=== PATIENT | female | born 1955 | race Asian ===

== ENCOUNTER 2024-11-18 12:16 | Emergency (ER) | payer BC, MEDICAID, SELFPAY ==
[2024-11-18] VITALS (24 sets, daily range): BP systolic 108–134; BP diastolic 74–90; PULSE 52–70; RESP 12–20; TEMP 36.6–36.9; O2SAT 90–100
--- NOTE | ~2024-11-18 | CT_ITS ---
CT head without contrast Indication: Dizziness, headache Technique: Serial scans were obtained through the brain without the administration of contrast. Dose reduction technique was used on this scan by utilizing automated exposure control and iterative recon struction technique. The dose-length product (DLP) was 605.33 mGy-cm. Findings: There is no evidence of intracranial hemorrhage, mass lesion, or acute infarct. The ventri cles and subarachnoid spaces are dilated, consistent with mild atrophy. Low attenuation regions are seen within the periventricular white matter bilaterally, likely representing changes from chronic mi crovascular ischemic disease. There is no evidence of edema, mass effect or midline shift. The visu alized paranasal sinuses and mastoid air cells are clear. Impression: No intracranial hemorrhage, mass, or acute infarct. Atrophy and chronic white matter changes, as above. Reviewed, dictated and finalized at location . Impression: No intracranial hemorrhage, mass, or acute infarct. Atrophy and chronic white matter changes, as above.
--- NOTE | 2024-11-18 13:29 | ED.DIZZY ---
HPI - Dizziness General Chief Complaint: Dizziness <Iesha Jay PA-C - Last Filed: 11/19/24 09:27> Stated Complaint: dizziness, nausea <Iesha Jay PA-C - Last Filed: 11/19/24 09:27> Time Seen by Provider: 11/18/24 13:29 <Iesha Jay PA-C - Last Filed: 11/19/24 09:27> Focused HPI: This is a 69 year old female that presents to the ER for headache. Reports associated dizziness. She woke up with these symptoms. No recent falls or injuries. Reports she had to hold the wall so she wouldn't fall. GENERAL: Well-appearing, well-nourished, and in no acute distress. HEAD: Normocephalic, atraumatic. CHEST: Clear to auscultation. ?No respiratory distress. HEART: Regular rate and rhythm.? NEURO: ?Alert and oriented x3. Patient screened in triage and initial orders placed.? ?Additional care and disposition to be based upon?diagnostic testing and treatment. <Iesha Jay PA-C - Last Filed: 11/19/24 09:27> History of Present Illness HPI Narrative: Agree with the HPI. <Chance Alarcon MD - Last Filed: 11/18/24 21:47> Related Data Allergies/Adverse Reactions: Allergies Allergy/AdvReac Type Severity Reaction Status Date / Time No Known Allergies Allergy Verified 11/18/24 12:36 <Iesha Jay PA-C - Last Filed: 11/19/24 09:27> Review of Systems Review of Systems: Gen.: Denies fevers or chills Eyes: Denies eye pain or visual change ENT: Denies congestion Respiratory: Denies shortness of breath or cough CV: Denies chest pain or palpitations GI: Denies abdominal pain nausea, emesis or diarrhea denies burning, urgency, frequency or hematuria Musculoskeletal: Denies back pain or muscle pain Neuro: Headache, dizziness. Denies numbness, tingling, weakness or focal weakness Skin: Denies rash Except as documented, all other systems reviewed and negative <Chance Alarcon MD - Last Filed: 11/18/24 21:47> Exam Narrative: APPEARANCE: No acute distress, nontoxic, resting in bed EYES: EOMI HEENT: Normocephalic, atraumatic, OMM RESPIRATORY: No respiratory distress Clear to auscultation bilaterally with no rhonchi wheezing or rales. CARDIOVASCULAR: Regular rate and rhythm without murmurs rubs or gallops. ABDOMINAL: Soft, nontender, nondistended, no rebound or guarding MUSCULOSKELETAl: Moves all extremities. No clubbing, cyanosis or edema. NEURO: Awake and alert. Following commands, speech normal, no focal deficits. NIH SS 0. SKIN:: Warm, dry. No rashes lesions or abrasions PSYCHIATRIC: Normal affect/mood, <Chance Alarcon MD - Last Filed: 11/18/24 21:47> Course Vital Signs Vital signs: Vital Signs Temperature 98.5 F 11/18/24 12:34 Pulse Rate 60 11/18/24 12:34 Respiratory Rate 15 11/18/24 12:34 Blood Pressure 132/82 11/18/24 12:34 Pulse Oximetry 98 11/18/24 12:34 Oxygen Delivery Room Air 11/18/24 12:34 Temperature 97.9 F 11/18/24 15:21 Pulse Rate 59 L 11/18/24 18:01 Respiratory Rate 12 11/18/24 18:00 Blood Pressure 116/90 11/18/24 18:01 Pulse Oximetry 96 11/18/24 18:01 Oxygen Delivery Room Air 11/18/24 12:34 <Iesha Jay PA-C - Last Filed: 11/19/24 09:27> Vital Signs Temperature 98.5 F 11/18/24 12:34 Pulse Rate 60 11/18/24 12:34 Respiratory Rate 15 11/18/24 12:34 Blood Pressure 132/82 11/18/24 12:34 Pulse Oximetry 98 11/18/24 12:34 Oxygen Delivery Room Air 11/18/24 12:34 Temperature 97.9 F 11/18/24 15:21 Pulse Rate 59 L 11/18/24 18:01 Respiratory Rate 12 11/18/24 18:00 Blood Pressure 116/90 11/18/24 18:01 Pulse Oximetry 96 11/18/24 18:01 Oxygen Delivery Room Air 11/18/24 12:34 <Chance Alarcon MD - Last Filed: 11/18/24 21:47> MDM - Dizziness MDM Narrative Medical decision making narrative: 69-year-old female presenting to the ED for headache, dizziness. Initial vital stable. She had a nonfocal neuro exam. CT head showed no acute process. She was given meclizine and zofran with improvement of her nausea and dizziness. She was given toradol with improvement of her headache. Patient did report some urinary frequency. UA was obtained and did show evidence of UTI. She was given a prescription for Keflex. Patient is new to the area, so she was given a referral to primary care here in the area to self-care. Patient and were agreeable to plan. Given strict return precautions. <Chance Alarcon MD - Last Filed: 11/18/24 21:47> Differential Diagnosis Differential diagnosis: Likely benign paroxysmal positional vertigo, cerebrovascular accident, acute vestibular neuronitis, transient cerebral ischemia and other (UTI, electrolyte abnormality) <Chance Alarcon MD - Last Filed: 11/18/24 21:47> Lab Data Attestation: I reviewed the patient's lab results. <Chance Alarcon MD - Last Filed: 11/18/24 21:47> Result diagrams: 11/18/24 14:06 11/18/24 14:06 <Iesha Jay PA-C - Last Filed: 11/19/24 09:27> Labs: Lab Results 11/18/24 11/18/24 Range/Units 14:06 17:23 WBC 4.9 (4.5-10.0) K/mm3 RBC 4.40 (4.2-5.4) M/mm3 Hgb 13.7 (12.0-15.0) g/dL Hct 41.6 (37.0-47.0) % MCV 94.5 (80-100) fl MCH 31.1 (26-34) pg MCHC 32.9 (32-36) g/dl RDW 12.9 (11.5-14.5) % Plt Count 365 (150-375) k/mm3 MPV 8.5 (7.4-10.4) fl Immature Gran % (Auto) 0.2 (0-0.5) % Neut % (Auto) 50.9 (45.5-73.1) % Lymph % (Auto) 39.9 (18.3-44.2) % [facility] % (Auto) 6.8 (2.6-8.5) % Eos % (Auto) 1.4 (0-4.4) % Baso % (Auto) 0.8 (0.2-1.2) % Lymph # (Auto) 1.94 (0.9-3.2) K/mm3 [facility] # (Auto) 0.3 (0.1-0.6) K/mm3 Eos # (Auto) 0.1 (0-0.3) K/mm3 Baso # (Auto) 0.0 (0.0-0.1) K/mm3 Abs Immat Gran (auto) 0.01 (0.00-0.031) K/mm3 Absolute Neuts (auto) 2.5 (1.3-6.7) K/mm3 Absolute Nucleated RBC 0.000 (0.0-0.012) K/mm3 Nucleated RBC % 0.0 (0.0-0.2) % Sodium 140 (137-145) mmol/L Potassium 4.2 (3.4-5.0) mmol/L Chloride 106 (98-107) mmol/L Carbon Dioxide 27 (22-30) mmol/L Anion Gap 7 (4-12) mmol/L BUN 15 (7-17) mg/dL Creatinine 0.69 L (0.7-1.0) mg/dL Estim Creat Clear Calc 56 ml/min Estimated GFR > 60 (59 - ) Glucose 89 (65-110) mg/dL Calcium 9.8 (8.4-10.2) mg/dL Total Bilirubin 0.3 (0.2-1.3) mg/dL AST 41 H (14-36) U/L ALT 31 (6-35) U/L Alkaline Phosphatase 86 (38-126) U/L Total Protein 7.8 (6.3-8.2) g/dL Albumin 4.6 (3.5-5.1) g/dL Urine Color Yellow (Yellow) Urine Appearance Cloudy H (Clear) Urine pH 7.5 (5.0-9.0) Ur Specific [place] 1.009 (1.001-1.035) Urine Protein Negative (Negative) mg/dL Urine Glucose (UA) Negative (Negative) mg/dL Urine Ketones Trace H (Negative) mg/dL Ur Blood (Man) Negative (Negative) Urine Nitrate Negative (Negative) Urine Bilirubin Negative (Negative) Urine Urobilinogen 0.2 (<2.0) mg/dL Leukocyte Esterase Rfl 1+ H (Negative) MELODY/UL Urine RBC 0-2 (0-2) /hpf Urine WBC 0-5 (0-3) /hpf Ur Squamous Epith Cells None seen (Few) /hpf Urine Bacteria None seen /hpf Urine Casts 0-2 Hyaline Casts Present (None) /lpf <Iesha Jay PA-C - Last Filed: 11/19/24 09:27> Lab Results 11/18/24 11/18/24 Range/Units 14:06 17:23 WBC 4.9 (4.5-10.0) K/mm3 RBC 4.40 (4.2-5.4) M/mm3 Hgb 13.7 (12.0-15.0) g/dL Hct 41.6 (37.0-47.0) % MCV 94.5 (80-100) fl MCH 31.1 (26-34) pg MCHC 32.9 (32-36) g/dl RDW 12.9 (11.5-14.5) % Plt Count 365 (150-375) k/mm3 MPV 8.5 (7.4-10.4) fl Immature Gran % (Auto) 0.2 (0-0.5) % Neut % (Auto) 50.9 (45.5-73.1) % Lymph % (Auto) 39.9 (18.3-44.2) % [facility] % (Auto) 6.8 (2.6-8.5) % Eos % (Auto) 1.4 (0-4.4) % Baso % (Auto) 0.8 (0.2-1.2) % Lymph # (Auto) 1.94 (0.9-3.2) K/mm3 [facility] # (Auto) 0.3 (0.1-0.6) K/mm3 Eos # (Auto) 0.1 (0-0.3) K/mm3 Baso # (Auto) 0.0 (0.0-0.1) K/mm3 Abs Immat Gran (auto) 0.01 (0.00-0.031) K/mm3 Absolute Neuts (auto) 2.5 (1.3-6.7) K/mm3 Absolute Nucleated RBC 0.000 (0.0-0.012) K/mm3 Nucleated RBC % 0.0 (0.0-0.2) % Sodium 140 (137-145) mmol/L Potassium 4.2 (3.4-5.0) mmol/L Chloride 106 (98-107) mmol/L Carbon Dioxide 27 (22-30) mmol/L Anion Gap 7 (4-12) mmol/L BUN 15 (7-17) mg/dL Creatinine 0.69 L (0.7-1.0) mg/dL Estim Creat Clear Calc 56 ml/min Estimated GFR > 60 (59 - ) Glucose 89 (65-110) mg/dL Calcium 9.8 (8.4-10.2) mg/dL Total Bilirubin 0.3 (0.2-1.3) mg/dL AST 41 H (14-36) U/L ALT 31 (6-35) U/L Alkaline Phosphatase 86 (38-126) U/L Total Protein 7.8 (6.3-8.2) g/dL Albumin 4.6 (3.5-5.1) g/dL Urine Color Yellow (Yellow) Urine Appearance Cloudy H (Clear) Urine pH 7.5 (5.0-9.0) Ur Specific [place] 1.009 (1.001-1.035) Urine Protein Negative (Negative) mg/dL Urine Glucose (UA) Negative (Negative) mg/dL Urine Ketones Trace H (Negative) mg/dL Ur Blood (Man) Negative (Negative) Urine Nitrate Negative (Negative) Urine Bilirubin Negative (Negative) Urine Urobilinogen 0.2 (<2.0) mg/dL Leukocyte Esterase Rfl 1+ H (Negative) MELODY/UL Urine RBC 0-2 (0-2) /hpf Urine WBC 0-5 (0-3) /hpf Ur Squamous Epith Cells None seen (Few) /hpf Urine Bacteria None seen /hpf Urine Casts 0-2 Hyaline Casts Present (None) /lpf <Chance Alarcon MD - Last Filed: 11/18/24 21:47> Imaging Data Radiologist's impression: Impressions Head CT 11/18/24 13:46 Impression: No intracranial hemorrhage, mass, or acute infarct. Atrophy and chronic white matter changes, as above. <Chance Alarcon MD - Last Filed: 11/18/24 21:47> Critical Care Time Critical Care Time Critical Care Time: No <Iesha Jay PA-C - Last Filed: 11/19/24 09:27> Discharge Plan Discharge Clinical Impression: Acute UTI Acute tension headache Qualifiers: Intractability: not intractable Qualified Code(s): G44.209 - Tension-type headache, unspecified, not intractable <Iesha Jay PA-C - Last Filed: 11/19/24 09:27> Patient Disposition: Home <DIANA Mike Last Filed: 11/19/24 09:27> Condition: Improved <Iesha Jay PA-C - Last Filed: 11/19/24 09:27> Instructions: Antibiotic Form, Urinary Tract Infection in Women (ED), Acute Headache (DC) <DIANA Mike Last Filed: 11/19/24 09:27> Patient Language: Wolof <Iesha Jay PA-C - Last Filed: 11/19/24 09:27> Prescriptions: New cephalexin 500 mg capsule 500 mg PO Q12H 7 Days Qty: 14 0RF ondansetron 4 mg tablet,disintegrating 4 mg PO Q8H PRN (Reason: nausea and vomiting) Qty: 14 0RF <Iesha Jay PA-C - Last Filed: 11/19/24 09:27> Follow-up/Referrals: Latrell Bailey DO [Physician, Family Practice] PHYSICIAN,MANAGER CAREER [Non-Staff, Internal Medicine] <DIANA Mike Last Filed: 11/19/24 09:27>
--- NOTE | 2024-11-18 13:30 | ECG_ITS ---
Test Date: 2024-11-18 14:13:02 Measurements Intervals [place] Rate: 55 P: 51 [place]: 192 QRS: -7 QRSD: 89 T: 40 QT: 432 QTc: 416 Interpretive Statements SINUS BRADYCARDIA BORDERLINE ECG No previous ECG available for comparison Electronically Signed On 11-18-2024 14:14:34 CDT by Vitor Rosa D.O.
[2024-11-18] MEDS: ONDANSETRON INJ 4 MG/2 ML VIAL IV PUSH (14:16)
[2024-11-18] MEDS: MECLIZINE HCL 25 MG TABLET PO (14:16)
[2024-11-18 14:17] LABS: Hematocrit 41.6 % (37.0-47.0); Hemoglobin 13.7 g/dL (12.0-15.0); Immature Granulocyte Percent A 0.2 % (0-0.5); Lymphocytes Absolute Auto 1.94 K/mm3 (0.9-3.2); Mean Corpuscular HGB Conc 32.9 g/dl (32-36); Mean Corpuscular Hemoglobin 31.1 pg (26-34); Mean Corpuscular Volume 94.5 fl (80-100); Nucleated Red Blood Cells Absolute Auto 0.000 K/mm3 (0.0-0.012); Nucleated Red Blood Cells Perc 0.0 % (0.0-0.2); Platelet Count Result 365 k/mm3 (150-375); Red Blood Count 4.40 M/mm3 (4.2-5.4); White Blood Count 4.9 K/mm3 (4.5-10.0)
[2024-11-18 14:22] LABS: Alanine Aminotransferase 31 U/L (6-35); Albumin Level 4.6 g/dL (3.5-5.1); Alkaline Phosphatase 86 U/L (38-126); Anion Gap 7 mmol/L (4-12); Aspartate Amino Transferase 41 U/L (14-36); Bilirubin,Total 0.3 mg/dL (0.2-1.3); Blood Urea Nitrogen 15 mg/dL (7-17); Calcium 9.8 mg/dL (8.4-10.2); Carbon Dioxide 27 mmol/L (22-30); Chloride 106 mmol/L (98-107); Estimated CRCL calculation 56 ml/min; Estimated Glomerular Filt Rate > 60; Glucose 89 mg/dL (65-110); Potassium 4.2 mmol/L (3.4-5.0); Sodium 140 mmol/L (137-145); Total Protein 7.8 g/dL (6.3-8.2)
[2024-11-18] MEDS: SODIUM CHLORIDE 0.9% IV 500 ML 999 ML IV CONT (16:20)
[2024-11-18 17:42] LABS: Add Urine Microscopic? YES; Appearance Urine Cloudy (Clear); Glucose Urine UA Negative (Negative); Leukocyte Esterase Ur 1+ LEU/UL (Negative); Nitrate Urine Negative (Negative); Non Pathogenic Casts 0-2; Specific Grav Ur 1.009 (1.001-1.035)
[2024-11-18] MEDS: KETOROLAC 30 MG/ML VIAL (*BKC) IV PUSH (18:16)
[2024-11-18] MEDS: CEPHALEXIN 500 MG CAPSULE PO (18:17)
== END 2024-11-18 18:25 | disposition home or self-care (01) ==
PROVIDERS: Physician Assistant; Emergency Provider Student in an Organized Health Care Education/Training Program
DX: N39.0 Urinary tract infection, site not specified (principal); G44.209 Tension-type headache, unspecified, not intractable
CPT/HCPCS: 36415; 70450; 80053; 81001; 85025; 87086; 93005; 96361; 96374; 96375; 99284; A9270; J1885; J2405; J7040

== ENCOUNTER 2024-12-24 08:36 | Outpatient (CLI) | payer MEDICAID, SELFPAY | END 2024-12-24 08:37 | disposition home or self-care (01) | LOC: ANHAUDIO 08:37 | PROVIDERS: PCP Family Medicine; Visit Provider Family Medicine | DX: H93.13 Tinnitus, bilateral (principal) | CPT/HCPCS: 92557; 92567 ==